=== PATIENT | male | born 1990 | race Hispanic/Latino ===

== ENCOUNTER 2017-11-27 15:31 | Emergency (ER) | payer SELFPAY ==
[~2017-11-27] VITALS: Ht 182.9 cm; Wt 117.9 kg
[2017-11-27] MEDS ORDERED: BACTRIM DS TAB1 EACH PO (16:22)
== END 2017-11-27 16:37 | disposition home or self-care (01) ==
LOC: ER 15:31
DX: M25.561 Pain in right knee (principal); L03.115 Cellulitis of right lower limb; I10 Essential (primary) hypertension
CPT/HCPCS: 99282

== ENCOUNTER 2018-02-23 12:58 | Emergency (ER) | payer SELFPAY ==
[~2018-02-23] VITALS: Ht 182.9 cm; Wt 117.9 kg
[~2018-02-23 12:58] MED LIST: BACTRIM DS TAB1 EACH PO
[2018-02-23] MEDS ORDERED: HYDROCODONE/APAP 10MG-325MG TAB PO ONE (13:45)
[2018-02-23] MEDS ORDERED: CEFTRIAXONE SOD 1 GM VIAL IM ONE (13:45)
[2018-02-23] MEDS ORDERED: AZITHROMYCIN 250 MG TAB PO ONE (13:45)
[2018-02-23 13:53] LABS: BILIRUBIN,URINE NEGATIVE (NEGATIVE); CLARITY,URINE CLEAR (CLEAR); COLOR,URINE YELLOW (YELLOW); KETONES,URINE NEGATIVE (NEGATIVE); LEUKOCYTE ESTERASE ,URINE NEGATIVE (NEGATIVE); NITRITE,URINE NEGATIVE (NEGATIVE); PROTEIN,URINE DIPSTICK NEGATIVE (NEGATIVE); URINE UROBILINOGEN 0.2 mg/dL (0.2 - 1)
[2018-02-23 14:00] LABS: BACTERIA,URINE MODERATE /HPF; EPITHELIAL CELLS,URINE FEW /LPF
--- NOTE | 2018-02-23 14:28 | Diagnostic Imaging Report ---
EXAM: Testicular Ultrasound DATE: 02/23/2018 12:00 AM INDICATION: ^[id number] ^[id number], testicular pain COMPARISON: None FINDINGS: Routine testicular ultrasound was performed. Right testicle: 34 x 23 x 29 mm. Flow is present. No testicular mass identified. Left testicle: 36 x 19 x 30 mm. Flow is present. No testicular mass identified. Small hydrocele. Right epididymis: 9 x 5 x 8 mm. Small 4 mm epididymal cyst incidentally noted. Left epididymis: 7 x 14 x 6 mm. Unremarkable. Other: Punctate testicular calcifications bilaterally incidentally noted. IMPRESSION: 1. Essentially unremarkable testicular ultrasound with no evidence of mass or torsion. Please see above for full details. Signed by: Dr. Maikol Ovalle MD on 02/23/2018 2:25 PM
--- NOTE | 2018-02-25 13:35 | Diagnostic Imaging Report ---
EXAM: Testicular Ultrasound DATE: 02/23/2018 12:00 AM INDICATION: ^[id number] ^[id number], testicular pain COMPARISON: None FINDINGS: Routine testicular ultrasound was performed. Right testicle: 34 x 23 x 29 mm. Flow is present. No testicular mass identified. Left testicle: 36 x 19 x 30 mm. Flow is present. No testicular mass identified. Small hydrocele. Right epididymis: 9 x 5 x 8 mm. Small 4 mm epididymal cyst incidentally noted. Left epididymis: 7 x 14 x 6 mm. Unremarkable. Other: Punctate testicular calcifications bilaterally incidentally noted. IMPRESSION: 1. Essentially unremarkable testicular ultrasound with no evidence of mass or torsion. Please see above for full details. Signed by: Dr. Maikol Ovalle MD on 02/23/2018 2:25 PM
== END 2018-02-23 17:59 | disposition left against medical advice (07) ==
LOC: ER 12:58
DX: N50.811 Right testicular pain (principal); R10.31 Right lower quadrant pain; I10 Essential (primary) hypertension
CPT/HCPCS: 76870; 81001; 87086; 93976; 99282